=== PATIENT | male | born 1945 | race Caucasian/White ===

== ENCOUNTER → 2019-10-20 | Outpatient (CLI) | payer OTHER ==
[~2019-10-20] MED LIST: CELLCEPT500 MG PO; DUONEB 2.5-0.5 M3 ML INH; FLOMAX0.4 MG PO; FOSAMAX 70 MG T70 MG PO; HYDROCODONE-AP1 EAC6 PO; PHENERGAN 25 MG25 M1 PO; PREDNISOLONE 5 M5 M1 PO; PRINIVIL20 MG PO; PROAIR HFA8.5 GM INH; PROSCAR 5MG TABL5 MG PO; PROTONIX40 M1 PO; VANCOMYCIN1 GM/100 M IV; VANCOMYCIN1.25 GM/15 IVPB; ZOCOR20 MG PO
== END ==
LOC: M.RAD 09:59
DX: J42 Unspecified chronic bronchitis (principal); I70.0 Atherosclerosis of aorta; I38 Endocarditis, valve unspecified

== ENCOUNTER → 2020-12-19 | Outpatient (CLI) | payer OTHER | LOC: M.RAD 09:00 | PROVIDERS: ATTEND Registered Nurse Diabetes Educator | DX: M81.0 Age-related osteoporosis without current pathological fracture (principal); Z79.899 Other long term (current) drug therapy; Z79.82 Long term (current) use of aspirin ==